=== PATIENT | female | born 1985 | race Caucasian/White ===

== ENCOUNTER 2018-06-11 06:48 | Outpatient (CLI) | payer BC | END 2018-06-11 06:49 | disposition home or self-care (01) | LOC: BICULT 06:48 | PROVIDERS: ATTEND Family Medicine | DX: R94.5 Abnormal results of liver function studies (principal); R16.0 Hepatomegaly, not elsewhere classified; K80.20 Calculus of gallbladder without cholecystitis without obstruction | CPT/HCPCS: 76700 ==